=== PATIENT | female | born 2000 | race Caucasian/White ===

== ENCOUNTER 2018-03-26 02:31 | Inpatient (IN) | payer MEDICAID ==
[~2018-03-26] VITALS: Ht 134.6 cm; Wt 49.9 kg
[2018-03-26] MEDS ORDERED: BETAMETHASONE ACET/BETAMET 30 MG/5 ML VIAL IM ONE (03:45)
[2018-03-26] MEDS ORDERED: TERBUTALINE SULFATE 1MG/ML VIAL SUBCUT ONE (03:45)
[2018-03-26 04:18] LABS: CLARITY URINE CLEAR (CLEAR); COLOR URINE YELLOW (YELLOW); KETONES URINE 1+ (NEGATIVE); LEUKOCYTE ESTERASE URINE 3+ (NEGATIVE); NITRITE URINE NEGATIVE (NEGATIVE); OCCULT BLOOD URINE NEGATIVE (NEGATIVE); PH URINE 7.5 (4.5-8.0); PROTEIN URINE NEGATIVE (NEGATIVE); SPECIFIC GRAVITY URINE 1.013 (1.005-1.030)
[2018-03-26] MEDS: LACTATED RINGERS 1,000 ML IV SCH ×2 (04:43→12:50)
[2018-03-26] MEDS ORDERED: CEFAZOLIN 2,000 MG in DEXT 5% WATER 100 ML IV SCH (05:30)
[2018-03-26] MEDS ORDERED: LACTATED RINGERS 1,000 ML IV SCH (07:10)
[2018-03-26] MEDS ORDERED: DEXT 5%/LR + PITOCIN 20UNITS/L 1,000 ML IV SCH ×2 (07:10→17:42)
[2018-03-26] MEDS ORDERED: LIDOCAINE HCL 1% 20ML VIAL (Pyxis) INJ INFIL SCH (07:15)
[2018-03-26] MEDS ORDERED: BUTORPHANOL TARTRATE 2 MG/ML VIAL IV PRN ×2 (07:15→14:00)
[2018-03-26] MEDS ORDERED: NALOXONE HCL 0.4 MG/ML 1ML VIAL IM PRN (07:15)
[2018-03-26] MEDS ORDERED: MISOPROSTOL 100MCG TABLET VG SCH (07:15)
[2018-03-26] MEDS ORDERED: METHYLERGONOVINE MALEATE 0.2 MG/ML IM PRN (07:15)
[2018-03-26] MEDS ORDERED: MAGNESIUM 20 G PREMIX (L & D) 500 ML IV SCH (07:30)
[2018-03-26] MEDS ORDERED: MAGNESIUM 4 G PREMIX 100 ML IV NR (07:30)
[2018-03-26 08:14] LABS: *AMPHETAMINES SCREEN URINE NEGATIVE (NEGATIVE); *BARBITURATES SCREEN URINE NEGATIVE (NEGATIVE); *BENZODIAZEPINES SCREEN URINE NEGATIVE (NEGATIVE); *COCAINE SCREEN URINE NEGATIVE (NEGATIVE); CANNABINOID URINE SCREEN NEGATIVE (NEGATIVE)
[2018-03-26 08:15] LABS: METHADONE URINE SCREEN NEGATIVE (NEGATIVE); OPIATES URINE SCREEN NEGATIVE (NEGATIVE); PHENCYCLIDINE URINE SCREEN NEGATIVE (NEGATIVE)
[2018-03-26] MEDS ORDERED: AMPICILLIN 2,000 MG in SODIUM CHLORIDE 0.9% 100 ML IV SCH (10:00)
[2018-03-26 10:34] LABS: HEMATOCRIT. 35.1 % (36.0-48.0); HEMOGLOBIN. 11.9 g/dL (12.0-16.0); MEAN CORPUSCULAR HEMOGLOBIN 29.6 pg (28.0-32.0); MEAN CORPUSCULAR VOLUME 87.5 fL (81.0-99.0); MEAN PLATELET VOLUME 10.1 fl (7.4-10.4); PLATELET 219 x1000/uL (130-400); RED CELL DISTRIBUTION WIDTH 13.8 % (11.6-14.6)
[2018-03-26 10:41] LABS: INR 0.9; PARTIAL THROMBOPLASTIN TIME 24.6 sec (23.4-31.0); PROTHROMBIN TIME 9.1 sec (9.1-11.1)
[2018-03-26 11:16] LABS: HEPATITIS B SURFACE ANTIGEN NEGATIVE
[2018-03-26 11:33] LABS: PLATELET ESTIMATE NORMAL
[2018-03-26] MEDS ORDERED: BETAMETHASONE ACET/BETAMET 30 MG/5 ML VIAL IM NR (15:30)
[2018-03-26] MEDS ORDERED: AMPICILLIN 1,000 MG in SODIUM CHLORIDE 0.9% 50 ML IV SCH (16:00)
[2018-03-26] MEDS ORDERED: ACETAMINOPHEN WITH CODEINE 300/30MG TABLET PO PRN (17:45)
[2018-03-26] MEDS ORDERED: RHO(D) IMMUNE GLOBULIN 300 MCG/SYR IM PRN (17:45)
[2018-03-26] MEDS ORDERED: BENZOCAINE/LANOLIN/ALOE VERA SPRAY TOP PRN (17:45)
[2018-03-26] MEDS ORDERED: IBUPROFEN 400MG TABLET PO PRN (17:45)
[2018-03-26 19:06] VITALS: BP 100/54
[2018-03-26 20:07] VITALS: BP 98/57
[2018-03-27 04:17] VITALS: BP 89/58
[2018-03-27 06:45] LABS: HEMATOCRIT. 28.3 % (36.0-48.0); HEMOGLOBIN. 9.4 g/dL (12.0-16.0); MEAN CORPUSCULAR HEMOGLOBIN 29.5 pg (28.0-32.0); MEAN CORPUSCULAR VOLUME 88.7 fL (81.0-99.0); MEAN PLATELET VOLUME 10.1 fl (7.4-10.4); PLATELET 197 x1000/uL (130-400); RED BLOOD CELL COUNT 3.19 mill/uL (4.2-5.4); RED CELL DISTRIBUTION WIDTH 13.9 % (11.6-14.6)
[2018-03-27] MEDS: IBUPROFEN 800MG TABLET PO PRN (08:09)
[2018-03-27 14:29] LABS: PLATELET ESTIMATE NORMAL
[2018-03-27 14:39] VITALS: BP 113/70
[2018-03-27 20:27] VITALS: BP 96/55
[2018-03-27 23:21] VITALS: BP 103/59
[2018-03-28 08:00] VITALS: BP 106/71
[2018-03-28] MEDS: IBUPROFEN 800MG TABLET PO PRN (08:45)
[2018-03-28] MEDS ORDERED: INFLUENZA VIRUS VACCINE(AFLURIA) 0.5ML SYR IM ONE (09:00)
== END 2018-03-28 13:00 | disposition home or self-care (01) | DRG 560 ==
LOC: 8 EST LDRP 02:31 → OBSVTOIN 02:31 → 8 EST LDRP 07:51 → 8EST 19:07
PROVIDERS: ADMIT Obstetrics & Gynecology; ATTEND Obstetrics & Gynecology
PROC: 10E0XZZ Delivery of Products of Conception, External Approach (ICD-10-PCS; principal; 2018-03-26)
PROC: 3E0R3BZ Introduction of Anesthetic Agent into Spinal Canal, Percutaneous Approach (ICD-10-PCS; 2018-03-26)
PROC: 00HU33Z Insertion of Infusion Device into Spinal Canal, Percutaneous Approach (ICD-10-PCS; 2018-03-26)
DX: O60.14X0 Preterm labor third trimester with preterm delivery third trimester, not applicable or unspecified (principal); D64.9 Anemia, unspecified; O90.81 Anemia of the puerperium; Z37.0 Single live birth; Z3A.34 34 weeks gestation of pregnancy
CPT/HCPCS: 36415; 80305; 83735; 86592; 86703; 86762; 86850; 86900; 87340; 88307; 90686; 99281; J0290; J0595; J0690; J0702; J2310; J2590; J3105; J3475; J3490; J7050; J7060; J7120; A4315

== ENCOUNTER 2023-02-03 20:57 | Emergency (ER) | payer SELFPAY ==
[~2023-02-03] VITALS: Ht 142.2 cm; Wt 54.2 kg
[2023-02-03 22:37] VITALS: BP 107/74; PULSE 59; RESP 14; TEMP 98.2; O2SAT 100
[2023-02-04] MEDS ORDERED: KETOROLAC 60MG/2ML VIAL IM ONE (00:30)
[2023-02-04] MEDS ORDERED: DIPHENHYDRAMINE 50MG/ML VIAL IM PRN (00:30)
[2023-02-04] MEDS ORDERED: COM10 MT (00:35)
[2023-02-04] MEDS ORDERED: DIPH25CA83 MT (00:35)
[2023-02-04] MEDS ORDERED: NAPR-1176 MT (00:35)
== END 2023-02-04 01:42 | disposition home or self-care (01) ==
LOC: ER 20:57
DX: R51.9 Headache, unspecified (principal)
CPT/HCPCS: 99282

== ENCOUNTER 2024-08-23 07:07 | Emergency (ER) | payer OTHER ==
[~2024-08-23] VITALS: Ht 157.5 cm; Wt 64.0 kg
[~2024-08-23 07:07] MED LIST: DIPH25CA83 MT; NAPR-1176 MT; PROC10TA65 MT
[2024-08-23 07:17] VITALS: BP 106/58; PULSE 70; RESP 16; TEMP 36.6; O2SAT 99
== END 2024-08-23 09:54 | disposition left against medical advice (07) ==
LOC: ER 07:07
DX: R10.13 Epigastric pain (principal); R11.2 Nausea with vomiting, unspecified; Z53.21 Procedure and treatment not carried out due to patient leaving prior to being seen by health care provider